=== PATIENT | female | born 1935 | race Hispanic/Latino ===

== ENCOUNTER 2023-04-17 15:14 | Emergency (ER) | payer MEDICARE ==
[~2023-04-17] VITALS: Ht 157.5 cm; Wt 49.9 kg
[2023-04-17 15:40] LABS: BASOPHILS # (AUTO) 0.04 K/uL (0.00-0.20); BASOPHILS % (AUTO) 0.5 % (0.0-5.0); EOSINOPHILS # (AUTO) 0.08 K/uL (0.00-0.70); HEMATOCRIT 39.3 % (36-48); IMMATURE GRANULOCYTE ABSOLUTE 0.02 K/uL (0-1); LYMPHOCYTES # (AUTO) 1.6 K/uL (1.0-4.8); LYMPHOCYTES % (AUTO) 20.2 % (21.0-51.0); MEAN CORPUSCULAR HEMOGLOBIN 28.9 pg (27.0-33.0); MEAN CORPUSCULAR HGB CONC 32.8 g/dL (32.0-36.0); MEAN CORPUSCULAR VOLUME 87.9 fL (79-99); MONOCYTES # (AUTO) 0.8 K/uL (0.1-1.0); MONOCYTES % (AUTO) 9.6 % (3.0-13.0); NEUTROPHILS # (AUTO) 5.5 K/uL (1.8-7.7); NEUTROPHILS % (AUTO) 68.5 % (40.0-77.0); PLATELET COUNT (AUTO) 221 K/uL (130-400); RED BLOOD CELL COUNT(AUTO) 4.47 MIL/uL (4.00-5.50); RED CELL DISTRIBUTION WIDTH 13.4 % (11.0-15.5)
[2023-04-17 15:50] LABS: SARS-CoV-2, RNA, NAAT NEGATIVE SARS CoV-2 (NEGATIVE)
[2023-04-17 15:52] LABS: INFLUENZA TYPE A Negative For Type A (NEGATIVE); INFLUENZA TYPE B Negative For Type B (NEGATIVE)
[2023-04-17 16:15] LABS: B-TYPE NATRIURETIC PEPTIDE 44 pg/mL (0-100)
[2023-04-17 16:22] LABS: ALBUMIN 3.6 g/dL (3.5-5.0); BILIRUBIN,TOTAL 0.6 mg/dL (0.2-1.0); CREATININE 0.8 mg/dL (0.5-1.5); MAGNESIUM 1.7 mg/dL (1.80-2.40); POTASSIUM 3.4 mmol/L (3.5-5.1); TOTAL PROTEIN, SERUM 6.9 g/dL (6.0-8.3)
[2023-04-17 17:18] LABS: APPEARANCE,URINE TURBID (CLEAR); BILIRUBIN,URINE NEGATIVE (NEGATIVE); COLOR,URINE YELLOW (YELLOW); GLUCOSE, URINE (UA) NEGATIVE (NEGATIVE); KETONES,URINE NEGATIVE (NEGATIVE); LEUKOCYTE ESTERASE ,URINE 500 Leu/uL (NEGATIVE); NITRATE,URINE NEGATIVE (NEGATIVE); OCCULT BLOOD,URINE SMALL (NEGATIVE); PH,URINE 6.5 (5.0-8.0); PROTEIN,URINE 10 mg/dL (NEGATIVE); UROBILINOGEN,URINE 0.2 mg/dL (0.2-1.0)
[2023-04-17 17:20] LABS: ADD UA MICROSCOPIC YES
[2023-04-17 17:23] LABS: BACTERIA,URINE FEW /HPF (None Seen); MUCUS,URINE RARE LPF (None Seen); OTHER CASTS, URINE 4 /LPF (None Seen); RBC,URINE 51-100 /HPF (0-1); SQUAMOUS EPITHELIAL CELL,UR MOD /HPF (0-2); UNCLASSIFIED CRYSTAL 7 /HPF (None Seen); WBC CLUMP MOD /HPF (0-1); WBC,URINE 51-100 /HPF (0-1); YEAST,URINE BUDDING MOD /HPF (None Seen)
[2023-04-17] MEDS ORDERED: IOHEXOL 350 MG/ML 100ML INFUS..BTL IV ONE (18:21)
[2023-04-17] MEDS ORDERED: MAGNESIUM OXIDE 400 MG TABLET PO ONE ×2 (18:40→19:00)
[2023-04-17] MEDS ORDERED: POTASSIUM CHLORIDE 10% ELIXIR 20 MEQ/15 ML UDCUP ONE (18:40)
[2023-04-17] MEDS ORDERED: POTASSIUM CHLORIDE 10% ELIXIR 20 MEQ/15 ML UDCUP PO ONE (19:00)
[2023-04-17] MEDS ORDERED: CEFTRIAXONE 2GM VIAL IVPB ONE (20:00)
[2023-04-17] MEDS ORDERED: PHEN-776 PO (20:09)
[2023-04-17] MEDS ORDERED: CEPH500B PO (20:09)
[2023-04-17 20:17] VITALS: BP 155/90; PULSE 95; RESP 16; O2SAT 97
[2023-04-18] MEDS ORDERED: POTASSIUM CHLORIDE 10% ELIXIR 20 MEQ/15 ML UDCUP PO ONE (09:00)
== END 2023-04-17 20:41 | disposition home or self-care (01) ==
LOC: EDH 15:14
DX: N39.0 Urinary tract infection, site not specified (principal); R06.02 Shortness of breath; I10 Essential (primary) hypertension; F03.90 Unspecified dementia, unspecified severity, without behavioral disturbance, psychotic disturbance, mood disturbance, and anxiety; Z20.822 Contact with and (suspected) exposure to COVID-19; Z90.710 Acquired absence of both cervix and uterus
CPT/HCPCS: 99285; 96374; 71270; 71045; 87635; 83735; 84484 ×2; 80053; 83880; 85025; 85378; 87088; 87804 ×2; 81001; 36415; 93005 ×2; C9803; J0696; Q9967

== ENCOUNTER → 2023-05-28 | Emergency (ER) | payer MEDICARE ==
[~2023-05-28] VITALS: Ht 152.4 cm; Wt 70.3 kg
[~2023-05-28] MED LIST: CEPH500B PO; LACT20PA6 PO; PHEN-776 PO
[2023-05-28 10:29] VITALS: BP 127/66; PULSE 61; RESP 18
[2023-05-28 11:10] LABS: BASOPHILS # (AUTO) 0.02 K/uL (0.00-0.20); BASOPHILS % (AUTO) 0.3 % (0.0-5.0); HEMATOCRIT 37.4 % (36-48); IMMATURE GRANULOCYTE ABSOLUTE 0.03 K/uL (0-1); LYMPHOCYTES # (AUTO) 0.8 K/uL (1.0-4.8); LYMPHOCYTES % (AUTO) 12.1 % (21.0-51.0); MEAN CORPUSCULAR HEMOGLOBIN 28.9 pg (27.0-33.0); MEAN CORPUSCULAR VOLUME 85.2 fL (79-99); MONOCYTES # (AUTO) 0.6 K/uL (0.1-1.0); MONOCYTES % (AUTO) 8.9 % (3.0-13.0); NEUTROPHILS # (AUTO) 5.4 K/uL (1.8-7.7); NEUTROPHILS % (AUTO) 78.3 % (40.0-77.0); PLATELET COUNT (AUTO) 244 K/uL (130-400); RED BLOOD CELL COUNT(AUTO) 4.39 MIL/uL (4.00-5.50); RED CELL DISTRIBUTION WIDTH 13.1 % (11.0-15.5)
[2023-05-28 11:25] LABS: ALBUMIN 3.5 g/dL (3.5-5.0); BILIRUBIN,TOTAL 0.6 mg/dL (0.2-1.0); CREATININE 0.9 mg/dL (0.5-1.5); POTASSIUM 3.7 mmol/L (3.5-5.1); TOTAL PROTEIN, SERUM 6.9 g/dL (6.0-8.3)
== END ==
LOC: EDH 10:17
DX: K59.00 Constipation, unspecified (principal)
CPT/HCPCS: 36415; 74018; 80053; 85025

== ENCOUNTER 2023-06-18 21:54 | Emergency (ER) | payer MEDICARE ==
[~2023-06-18] VITALS: Ht 149.9 cm; Wt 54.4 kg
[2023-06-18 22:36] LABS: BASOPHILS # (AUTO) 0.05 K/uL (0.00-0.20); BASOPHILS % (AUTO) 0.8 % (0.0-5.0); EOSINOPHILS # (AUTO) 0.12 K/uL (0.00-0.70); EOSINOPHILS % (AUTO) 1.9 % (0.0-8.0); HEMATOCRIT 39.7 % (36-48); IMMATURE GRANULOCYTE ABSOLUTE 0.01 K/uL (0-1); LYMPHOCYTES # (AUTO) 2.1 K/uL (1.0-4.8); MEAN CORPUSCULAR HEMOGLOBIN 28.6 pg (27.0-33.0); MEAN CORPUSCULAR HGB CONC 32.5 g/dL (32.0-36.0); MONOCYTES # (AUTO) 0.7 K/uL (0.1-1.0); MONOCYTES % (AUTO) 11.1 % (3.0-13.0); NEUTROPHILS # (AUTO) 3.2 K/uL (1.8-7.7); PLATELET COUNT (AUTO) 238 K/uL (130-400); RED BLOOD CELL COUNT(AUTO) 4.51 MIL/uL (4.00-5.50); RED CELL DISTRIBUTION WIDTH 13.2 % (11.0-15.5); WHITE BLOOD COUNT (AUTO) 6.2 K/uL (4.8-10.8)
[2023-06-18 22:45] LABS: CREATININE 0.8 mg/dL (0.5-1.5); POTASSIUM 3.7 mmol/L (3.5-5.1)
[2023-06-18 22:49] LABS: ALBUMIN 3.7 g/dL (3.5-5.0); BILIRUBIN,TOTAL 0.4 mg/dL (0.2-1.0); TOTAL PROTEIN, SERUM 7.4 g/dL (6.0-8.3)
[2023-06-18 23:12] LABS: APPEARANCE,URINE CLEAR (CLEAR); BILIRUBIN,URINE NEGATIVE (NEGATIVE); COLOR,URINE COLORLESS (YELLOW); GLUCOSE, URINE (UA) NEGATIVE (NEGATIVE); KETONES,URINE NEGATIVE (NEGATIVE); LEUKOCYTE ESTERASE ,URINE NEGATIVE Leu/uL (NEGATIVE); NITRATE,URINE NEGATIVE (NEGATIVE); OCCULT BLOOD,URINE NEGATIVE (NEGATIVE); PROTEIN,URINE NEGATIVE (NEGATIVE); UROBILINOGEN,URINE 0.2 mg/dL (0.2-1.0)
[2023-06-18 23:15] LABS: ADD UA MICROSCOPIC NO
[2023-06-18] MEDS ORDERED: IOHEXOL-350 75 ML VIAL IV ONE (23:19)
[2023-06-19] MEDS ORDERED: LACT10SO85 PO (03:30)
[2023-06-19] MEDS ORDERED: MAGN296S73 PO (03:30)
[2023-06-19] MEDS ORDERED: BISA10SU61 RC (03:30)
[2023-06-19 03:31] VITALS: BP 147/52; PULSE 74; RESP 16; O2SAT 95
== END 2023-06-19 03:40 | disposition home or self-care (01) ==
LOC: EDH 21:54
DX: K59.00 Constipation, unspecified (principal); F03.90 Unspecified dementia, unspecified severity, without behavioral disturbance, psychotic disturbance, mood disturbance, and anxiety
CPT/HCPCS: 99285; 74177; 84484; 80053; 83690; 85025; 81003; 36415; 93005; Q9967

== ENCOUNTER 2023-09-02 21:58 | Emergency (ER) | payer MEDICARE ==
[~2023-09-02] VITALS: Ht 147.3 cm; Wt 45.4 kg
[~2023-09-02 21:58] MED LIST changes: +ACET650O3 PO; +AEC81 PO; +ASCO500T10 PO; +BUSP5TAB3 PO; -CEPH500B PO; +DIPH25TA51 PO; +FAMO-136 PO; +FERR-82 PO; +LACT10SO9 PO; -LACT20PA6 PO; +LISI20TA24 PO; +MEMA10TA55 PO; +METO50TA18 PO; +OLAN5TAB76 PO; +ONDA22I PO; -PHEN-776 PO; +POTA-202 PO; +SENN8.6T32 PO; +ZINC220C6 PO
[2023-09-02 22:29] LABS: HEMATOCRIT 33.3 % (36-48); IMMATURE GRANULOCYTE ABSOLUTE 0.05 K/uL (0-1); LYMPHOCYTES # (AUTO) 0.5 K/uL (1.0-4.8); LYMPHOCYTES % (AUTO) 8.4 % (21.0-51.0); MEAN CORPUSCULAR HEMOGLOBIN 28.6 pg (27.0-33.0); MEAN CORPUSCULAR VOLUME 86.5 fL (79-99); MONOCYTES # (AUTO) 0.2 K/uL (0.1-1.0); MONOCYTES % (AUTO) 3.7 % (3.0-13.0); NEUTROPHILS # (AUTO) 5.2 K/uL (1.8-7.7); NEUTROPHILS % (AUTO) 87.1 % (40.0-77.0); PLATELET COUNT (AUTO) 256 K/uL (130-400); RED BLOOD CELL COUNT(AUTO) 3.85 MIL/uL (4.00-5.50); RED CELL DISTRIBUTION WIDTH 13.5 % (11.0-15.5); WHITE BLOOD COUNT (AUTO) 5.9 K/uL (4.8-10.8)
[2023-09-02 22:42] LABS: ALBUMIN 3.1 g/dL (3.5-5.0); BILIRUBIN,TOTAL 0.6 mg/dL (0.2-1.0); CREATININE 1.6 mg/dL (0.5-1.5); TOTAL PROTEIN, SERUM 7.2 g/dL (6.0-8.3)
[2023-09-02 22:48] LABS: B-TYPE NATRIURETIC PEPTIDE 349 pg/mL (0-100); WBC MORPHOLOGY CONSISTENT W/DIFF
[2023-09-02] MEDS: POTASSIUM BICARB/CIT AC 25 MEQ TABLET.EFF PO ONE (23:05)
[2023-09-02 23:17] LABS: INFLUENZA TYPE A Negative For Type A (NEGATIVE); INFLUENZA TYPE B Negative For Type B (NEGATIVE)
[2023-09-02] MEDS: 0.9%NACL 1000ML 1,000 ML IV ONE (23:22)
[2023-09-02 23:26] LABS: SARS-CoV-2, RNA, NAAT POSITIVE SARS CoV-2 (NEGATIVE)
[2023-09-03 00:30] VITALS: BP 139/74; PULSE 75; RESP 12; O2SAT 99
== END 2023-09-03 01:15 | disposition home or self-care (01) ==
LOC: EDH 21:58
DX: U07.1 COVID-19 (principal); F41.9 Anxiety disorder, unspecified; F03.94 Unspecified dementia, unspecified severity, with anxiety; E86.0 Dehydration; E87.6 Hypokalemia; I10 Essential (primary) hypertension; Z79.82 Long term (current) use of aspirin; Z79.899 Other long term (current) drug therapy
CPT/HCPCS: 99285; 96360; 71045; 87635; 96361; 84484 ×2; 80053; 83880; 85025; 87804 ×2; 82948; 36415; 93005; J7030